=== PATIENT | male | born 1970 | race Caucasian/White ===

== ENCOUNTER → 2021-09-12 15:00 | Outpatient (CLI) | payer OTHER, SELFPAY ==
--- NOTE | ~2021-09-12 | MR_ITS ---
EXAMINATION: MR lumbar spine wo con EXAM DATE: 09/12/2021 15:41 INDICATION: Low back pain. Left leg numbness. TECHNIQUE: Multi-sequential, multiplanar MR images of the lumbar spine were obtained without contrast . Sagittal T1, T2, T2 fat saturation images. Axial T2 weighted images. There is no prior study for comparison. FINDINGS: There is mild to moderate disc disease L-1-L3 and L5-S1, mild at L3-4 and L4-5. The conus m edullaris terminates at the T12-L1 level and has normal signal intensity and morphology. There are n o suspicious marrow signal abnormalities. The vertebral bodies are aligned in the AP dimension. Juan Antonio shai soft tissue is unremarkable. Level by level evaluation: T12-L1: Disc does not extend beyond the endplate margin. Facet arthropathy: Mild. Neural foraminal stenosis: No stenosis. Central canal stenosis: No stenosis. L1-L2: There is a moderate diffuse disc bulge. Facet arthropathy: Mild to moderate. Neural foraminal stenosis: Mild left. Central canal stenosis: Mild. L2-L3: There is a mild to moderate diffuse disc bulge. Facet arthropathy: Moderate. Neural foraminal stenosis: Mild bilateral. Central canal stenosis: Mild. L3-L4: There is a mild to moderate diffuse disc bulge. Facet arthropathy: Moderate. Neural foraminal stenosis: Mild to moderate right, mild left. Central canal stenosis: Mild to moderate. L4-L5: There is a mild diffuse disc bulge. Facet arthropathy: Moderate to severe left, moderate right. Neural foraminal stenosis: Mild to moderate bilateral. Central canal stenosis: Mild to moderate. L5-S1: There is a mild diffuse disc bulge. Facet arthropathy: Moderate. Neural foraminal stenosis: Mild to moderate left, mild right. Central canal stenosis: Mild. IMPRESSION: Moderate lumbar arthropathy. Mild to moderate disc disease and neural foraminal stenosis. Reviewed, dictated and finalized at location G. IMPRESSION: Moderate lumbar arthropathy. Mild to moderate disc disease and neur al foraminal stenosis.
== END ==
PROVIDERS: PCP Internal Medicine; Visit Provider Physician Assistant Medical
DX: M54.50 Low back pain, unspecified (principal); M51.86 Other intervertebral disc disorders, lumbar region; M12.88 Other specific arthropathies, not elsewhere classified, other specified site; M48.061 Spinal stenosis, lumbar region without neurogenic claudication
CPT/HCPCS: 72148